=== PATIENT | male | born 1940 | race Caucasian/White ===

== ENCOUNTER 2018-09-07 19:23 | Inpatient (IN) | payer MEDICARE, BC ==
[~2018-09-07] VITALS: Ht 188 cm; Wt 113.7 kg
[2018-09-07] MEDS: aspirin 325mg tablet PO ONE ×2 (20:23→21:21)
[2018-09-07 20:32] LABS: BASOPHILS # (AUTO) 0.1 X10'3 (0-0.2); BASOPHILS % (AUTO) 1.1 % (0-1); EOSINOPHILS # (AUTO) 0.1 X10'3 (0-0.9); EOSINOPHILS % (AUTO) 0.5 % (0-6); HEMATOCRIT 44.1 % (42.0-52.0); HEMOGLOBIN 14.9 g/dl (14.0-17.9); LYMPHOCYTES # (AUTO) 1.6 X10'3 (1.1-4.8); LYMPHOCYTES % (AUTO) 14.2 % (21-51); MEAN CORPUSCULAR HEMOGLOBIN 32.6 PG (27.0-31.0); MEAN CORPUSCULAR HGB CONC 33.9 % (33.0-36.5); MEAN CORPUSCULAR VOLUME 96.1 FL (78-98); MEAN PLATELET VOLUME 7.4 FL (7.4-10.4); MONOCYTES # (AUTO) 0.7 X10'3 (0-0.9); MONOCYTES % (AUTO) 6.1 % (2-12); NEUTROPHILS # (AUTO) 8.5 X10'3 (1.8-7.7); NEUTROPHILS % (AUTO) 78.1 % (42-75); PLATELET COUNT 318 X10'3 (140-440); RED BLOOD COUNT 4.59 X10'6 (4.70-6.10); RED CELL DISTRIBUTION WIDTH 13.9 % (11.5-14.5); WHITE BLOOD COUNT 10.9 X10'3 (4.5-11.0)
[2018-09-07] MEDS ORDERED: LISI1TAB13 PO (20:36)
[2018-09-07 20:46] LABS: PARTIAL THROMBOPLASTIN TIME 29 SECONDS (22-32); PROTHROMBIN TIME 10.1 SECONDS (9.0-12.0)
[2018-09-07 20:47] LABS: ALANINE AMINOTRANSFERASE 26 U/L (12-78); ALBUMIN 3.4 G/DL (3.4-5.0); ALBUMIN/GLOBULIN RATIO 1.1 (1.1-1.5); ALKALINE PHOSPHATASE 75 IU/L (46-116); ANION GAP 9 (8-16); ASPARTATE AMINO TRANSFERASE 23 U/L (10-37); BILIRUBIN,TOTAL 0.3 MG/DL (0.1-1.0); BLOOD UREA NITROGEN 15 MG/DL (7-18); BUN/CREATININE RATIO 14.9 (5.4-32.0); CALCIUM 8.5 MG/DL (8.5-10.1); CHLORIDE 106 MMOL/L (99-107); CREATININE 1.01 MG/DL (0.60-1.10); GLUCOSE 119 MG/DL (70-104); MAGNESIUM 1.7 MG/DL (1.5-2.4); SODIUM 142 MMOL/L (135-145); TOTAL CARBON DIOXIDE 27.5 MMOL/L (24-32); TOTAL PROTEIN 6.4 G/DL (6.4-8.2); eGFR 72 ML/MIN
[2018-09-07 20:55] LABS: POTASSIUM 3.5 MMOL/L (3.5-5.1)
[2018-09-07 21:12] LABS: CLARITY,URINE CLEAR (Clear); COLOR,URINE YELLOW (Yellow); GLUCOSE, URINE NEGATIVE (Neg); KETONES,URINE NEGATIVE (Neg); LEUKOCYTE ESTERASE ,URINE NEGATIVE (Neg); NITRITES, URINE NEGATIVE (Neg); OCCULT BLOOD,URINE NEGATIVE (Neg); PH,URINE 6.5 (4.8-8.0); PROTEIN,URINE NEGATIVE (Neg); UA COLLECTION TYPE URINAL; UROBILINOGEN,URINE 0.2 E.U/dL (0.2-1.0)
[2018-09-07] MEDS ORDERED: magnesium hydroxide 30ml (MOM) UD suspension PO PRN (22:10)
[2018-09-07] MEDS ORDERED: ondansetron/PF 4mg/2ml inj IV PRN (22:10)
[2018-09-07] MEDS ORDERED: mag hydrox/Alum hydrox/simeth 30ml oral suspension PO PRN (22:10)
[2018-09-07] MEDS ORDERED: acetaminophen 325mg tablet PO PRN (22:10)
[2018-09-07 22:37] LABS: HEMOGLOBIN A1C 6.1 % (4.5-6.2)
[2018-09-07 22:50] VITALS: BP 165/74
[2018-09-08] MEDS ORDERED: pneumococcal 23-VAL P-sac vacc 25 mcg/0.5ml vial IMVAC ONE (04:55)
[2018-09-08 05:10] LABS: BASOPHILS % (AUTO) 0.3 % (0-1); EOSINOPHILS # (AUTO) 0.2 X10'3 (0-0.9); HEMATOCRIT 42.1 % (42.0-52.0); HEMOGLOBIN 13.9 g/dl (14.0-17.9); LYMPHOCYTES # (AUTO) 2.1 X10'3 (1.1-4.8); LYMPHOCYTES % (AUTO) 24.3 % (21-51); MEAN CORPUSCULAR HEMOGLOBIN 31.9 PG (27.0-31.0); MEAN CORPUSCULAR VOLUME 96.6 FL (78-98); MEAN PLATELET VOLUME 7.4 FL (7.4-10.4); MONOCYTES # (AUTO) 0.6 X10'3 (0-0.9); MONOCYTES % (AUTO) 6.7 % (2-12); NEUTROPHILS # (AUTO) 5.9 X10'3 (1.8-7.7); NEUTROPHILS % (AUTO) 66.7 % (42-75); PLATELET COUNT 282 X10'3 (140-440); RED BLOOD COUNT 4.36 X10'6 (4.70-6.10); RED CELL DISTRIBUTION WIDTH 13.9 % (11.5-14.5); WHITE BLOOD COUNT 8.8 X10'3 (4.5-11.0)
[2018-09-08 05:34] LABS: ALANINE AMINOTRANSFERASE 22 U/L (12-78); ALBUMIN 2.9 G/DL (3.4-5.0); ALKALINE PHOSPHATASE 62 IU/L (46-116); ANION GAP 9 (8-16); ASPARTATE AMINO TRANSFERASE 13 U/L (10-37); BILIRUBIN,TOTAL 0.3 MG/DL (0.1-1.0); BLOOD UREA NITROGEN 13 MG/DL (7-18); BUN/CREATININE RATIO 13.5 (5.4-32.0); CALCIUM 8.3 MG/DL (8.5-10.1); CHLORIDE 109 MMOL/L (99-107); CHOL/HDL RATIO 4.8 (0.00-4.99); CHOLESTEROL 169 MG/DL (0-200); CREATININE 0.96 MG/DL (0.60-1.10); GLUCOSE 102 MG/DL (70-104); HDL CHOLESTEROL 35 MG/DL (35-60); LDL CHOLESTEROL 119 MG/DL (50-100); POTASSIUM 3.6 MMOL/L (3.5-5.1); SODIUM 144 MMOL/L (135-145); TOTAL CARBON DIOXIDE 25.6 MMOL/L (24-32); TOTAL PROTEIN 5.7 G/DL (6.4-8.2); TRIGLYCERIDES 111 MG/DL (20-135); eGFR 76 ML/MIN
[2018-09-08 08:00] VITALS: BP 145/72
[2018-09-08] MEDS ORDERED: HYDROchlorothiazide 25mg tablet PO SCH (08:00)
[2018-09-08] MEDS ORDERED: lisinopril 20mg tablet PO SCH (08:00)
[2018-09-08] MEDS ORDERED: aspirin 325mg tablet, delayed-release (Ecotrin) PO SCH (08:00)
[2018-09-08] MEDS ORDERED: enoxaparin 40mg/0.4ml syringe SUBCUT SCH (08:00)
[2018-09-08 12:00] VITALS: BP 139/75
[2018-09-08] MEDS ORDERED: atorvastatin 20mg tablet PO SCH (15:10)
[2018-09-08] MEDS ORDERED: ASPI-41 PO (15:12)
[2018-09-08] MEDS ORDERED: ATOR20TA66 PO (15:12)
== END 2018-09-08 15:29 | disposition home or self-care (01) | DRG 66 ==
LOC: ER 19:23 → ED HOLD 22:08 → SUR 3N 09-08 00:20
PROVIDERS: ADMIT Internal Medicine; ATTEND Internal Medicine
PROC: 3E0234Z Introduction of Serum, Toxoid and Vaccine into Muscle, Percutaneous Approach (ICD-10-PCS; principal; 2018-09-08)
DX: I63.9 Cerebral infarction, unspecified (principal); E78.5 Hyperlipidemia, unspecified; F17.210 Nicotine dependence, cigarettes, uncomplicated; G83.13 Monoplegia of lower limb affecting right nondominant side; I10 Essential (primary) hypertension; Z79.899 Other long term (current) drug therapy; Z23 Encounter for immunization; Z71.6 Tobacco abuse counseling
CPT/HCPCS: 36415; 70450; 70544; 70551; 71045; 80053; 80061; 81003; 83036; 83735; 84484; 85025; 85610; 85730; 90732; 92616; 93005; 93306; 93880; 97116; 97162; 99285; G0378; J1650

== ENCOUNTER 2023-01-16 06:27 | Day surgery (SDC) | payer MEDICARE, BC ==
[~2023-01-16] VITALS: Ht 188 cm; Wt 104.5 kg
[~2023-01-16 06:27] MED LIST: ASPI-41 PO; ATOR20TA66 PO; LISI1TAB53 PO
[2023-01-16 06:50] VITALS: BP 161/80
[2023-01-16] MEDS ORDERED: MIDAZolam 1 MG/ML 5ML VIAL ONE (06:52)
[2023-01-16] MEDS ORDERED: fentaNYL/PF 50MCG/1 ML 2ML syringe ONE (06:53)
[2023-01-16] MEDS ORDERED: ATOR20TA66 PO (07:07)
[2023-01-16] MEDS ORDERED: ASPI-1053 PO (07:08)
[2023-01-16 08:20] VITALS: BP 150/71
[2023-01-16 08:30] VITALS: BP 152/70
[2023-01-16 08:40] VITALS: BP 114/70
[2023-01-16 08:50] VITALS: BP 140/69
== END 2023-01-16 08:55 | disposition home or self-care (01) ==
LOC: GI LAB 06:27
PROVIDERS: ATTEND Specialist
DX: Z12.11 Encounter for screening for malignant neoplasm of colon (principal); D12.3 Benign neoplasm of transverse colon; D12.5 Benign neoplasm of sigmoid colon; D12.0 Benign neoplasm of cecum; D12.2 Benign neoplasm of ascending colon; K55.21 Angiodysplasia of colon with hemorrhage; K57.30 Diverticulosis of large intestine without perforation or abscess without bleeding; K64.8 Other hemorrhoids; I10 Essential (primary) hypertension; Z72.89 Other problems related to lifestyle; F17.210 Nicotine dependence, cigarettes, uncomplicated; Z86.010 Personal history of colon polyps; Z79.899 Other long term (current) drug therapy
CPT/HCPCS: 45380; 45382; 45385; 99153; C1889; G0500; J2250; J3010; J7030; Z7512; 99152; A4620

== ENCOUNTER 2024-03-07 02:24 | Inpatient (IN) | payer MEDICARE, BC ==
[~2024-03-07] VITALS: Ht 188 cm; Wt 98.0 kg
[~2024-03-07 02:24] MED LIST changes: +ASPI-1053 PO; -ASPI-41 PO
[2024-03-07 04:00] LABS: ALANINE AMINOTRANSFERASE 40 U/L (12-78); ALBUMIN 3.8 G/DL (3.4-5.0); ALBUMIN/GLOBULIN RATIO 1.2 (1.1-1.5); ALKALINE PHOSPHATASE 66 IU/L (46-116); ANION GAP 14 (8-16); ASPARTATE AMINO TRANSFERASE 55 U/L (10-37); BILIRUBIN,TOTAL 1.3 MG/DL (0.1-1.0); BLOOD UREA NITROGEN 54 MG/DL (7-18); BUN/CREATININE RATIO 32.5 (10.0-20.0); CALCIUM 9.3 MG/DL (8.5-10.1); CHLORIDE 106 MMOL/L (99-107); CREATININE 1.66 MG/DL (0.60-1.10); GLUCOSE 104 MG/DL (70-104); POTASSIUM 3.3 MMOL/L (3.5-5.1); SODIUM 148 MMOL/L (135-145); TOTAL CARBON DIOXIDE 27.7 MMOL/L (24-32); TOTAL PROTEIN 7.1 G/DL (6.4-8.2); eCRCL 41 ML/MIN; eGFR 40 ML/MIN
[2024-03-07] MEDS ORDERED: iohexol 350MG/ML 100ml bottle IV ONE (04:09)
[2024-03-07 04:10] LABS: FREE T4 (FREE THYROXINE) 0.91 NG/DL (0.73-1.40); MAGNESIUM 2.2 MG/DL (1.5-2.4); PRO BRAIN NATRIURETIC PEPTIDE 101 PG/ML (0-450); THYROID STIMULATING HORMONE 2.27 ulU/ml (0.34-4.50)
[2024-03-07 04:11] LABS: BASOPHILS % (AUTO) 0.2 % (0-1); EOSINOPHILS # (AUTO) 0.1 X10'3 (0-0.9); EOSINOPHILS % (AUTO) 0.7 % (0-6); HEMATOCRIT 47.4 % (42.0-52.0); LYMPHOCYTES # (AUTO) 1.3 X10'3 (1.1-4.8); LYMPHOCYTES % (AUTO) 11.1 % (21-51); MEAN CORPUSCULAR HEMOGLOBIN 33.3 PG (27.0-31.0); MEAN CORPUSCULAR HGB CONC 33.7 g/dL (33.0-36.5); MEAN CORPUSCULAR VOLUME 98.8 FL (78-98); MEAN PLATELET VOLUME 7.9 FL (7.4-10.4); MONOCYTES # (AUTO) 1.2 X10'3 (0-0.9); MONOCYTES % (AUTO) 10.3 % (2-12); NEUTROPHILS # (AUTO) 9.3 X10'3 (1.8-7.7); NEUTROPHILS % (AUTO) 77.7 % (42-75); PLATELET COUNT 266 X10'3 (140-440); RED BLOOD COUNT 4.79 X10'6 (4.70-6.10); RED CELL DISTRIBUTION WIDTH 13.7 % (11.5-14.5)
[2024-03-07] MEDS: ringers solution, lacted 1,000 ML IV ONE (04:48)
[2024-03-07 04:49] VITALS: TEMP 98.6
[2024-03-07] MEDS ORDERED: magnesium Cl slow-release 64mg tablet PO PRN (08:10)
[2024-03-07] MEDS ORDERED: magnesium 2GM in 50ml NS 50 ML IV PRN (08:10)
[2024-03-07] MEDS ORDERED: potassium Cl 20 mEq SR tablet PO PRN ×2 (08:10)
[2024-03-07] MEDS ORDERED: ondansetron/PF 4mg/2ml inj IV PRN (08:10)
[2024-03-07] MEDS ORDERED: potassium Cl 40MEQ/1/2NS 520ml 520 ML IV PRN (08:10)
[2024-03-07] MEDS: pantoprazole 40mg Tablet.DR PO SCH (08:10)
[2024-03-07] MEDS ORDERED: acetaminophen 325mg tablet PO PRN ×2 (08:10)
[2024-03-07] MEDS ORDERED: magnesium 4gm in 100ml NS 100 ML IV PRN (08:10)
[2024-03-07] MEDS: normal saline 1000ml 1,000 ML IV SCH (08:27)
[2024-03-07 09:50] VITALS: BP 149/72; PULSE 46; RESP 16
[2024-03-07] MEDS ORDERED: MIDAZolam 1 MG/ML 5ML VIAL ONE (10:00)
[2024-03-07] MEDS ORDERED: LIDOcaine 2% Viscous 15ml cup ONE (10:00)
[2024-03-07] MEDS ORDERED: fentaNYL/PF 50MCG/1 ML 2ML syringe ONE (10:00)
[2024-03-07 10:35] VITALS: BP 141/76; PULSE 99; RESP 16; O2SAT 99
[2024-03-07 10:45] VITALS: BP 151/69; PULSE 44; RESP 17; O2SAT 100
[2024-03-07 10:55] VITALS: BP 111/56; PULSE 45; RESP 15; O2SAT 97
[2024-03-07 11:05] VITALS: BP 131/73; PULSE 46; RESP 17; O2SAT 96
[2024-03-07] MEDS ORDERED: heparin, porcine 5000 units/ml vial SQ SCH (20:00)
== END 2024-03-07 12:29 | disposition left against medical advice (07) | DRG 392 ==
LOC: ER 02:25 → ED HOLD 08:19
PROVIDERS: ADMIT Internal Medicine; ATTEND Internal Medicine
PROC: 0DB48ZX Excision of Esophagogastric Junction, Via Natural or Artificial Opening Endoscopic, Diagnostic (ICD-10-PCS; principal; 2024-03-07)
PROC: 0DB68ZX Excision of Stomach, Via Natural or Artificial Opening Endoscopic, Diagnostic (ICD-10-PCS; 2024-03-07)
PROC: 0DB18ZX Excision of Upper Esophagus, Via Natural or Artificial Opening Endoscopic, Diagnostic (ICD-10-PCS; 2024-03-07)
PROC: 0DB38ZX Excision of Lower Esophagus, Via Natural or Artificial Opening Endoscopic, Diagnostic (ICD-10-PCS; 2024-03-07)
PROC: BW211ZZ Computerized Tomography (CT Scan) of Abdomen and Pelvis using Low Osmolar Contrast (ICD-10-PCS; 2024-03-07)
PROC: B32T1ZZ Computerized Tomography (CT Scan) of Left Pulmonary Artery using Low Osmolar Contrast (ICD-10-PCS; 2024-03-07)
PROC: B32S1ZZ Computerized Tomography (CT Scan) of Right Pulmonary Artery using Low Osmolar Contrast (ICD-10-PCS; 2024-03-07)
DX: K22.2 Esophageal obstruction (principal); I10 Essential (primary) hypertension; K22.9 Disease of esophagus, unspecified; E78.00 Pure hypercholesterolemia, unspecified; Z53.29 Procedure and treatment not carried out because of patient's decision for other reasons
CPT/HCPCS: 36415; 43239; 71045; 71275; 74177; 80053; 82948; 83735; 83880; 84439; 84443; 84484; 85025; 88305; 93005; 96360; 99152; 99291; A4620; G0378; J2250; J3010; J3490; J7030; J7120; Q9967